=== PATIENT | female | born 1965 | race Caucasian/White ===

== ENCOUNTER 2018-10-14 22:50 | Inpatient (IN) | payer OTHER ==
[~2018-10-14] VITALS: Ht 162.6 cm; Wt 86.2 kg
[2018-10-14] MEDS ORDERED: JANUMET XR 50-1 EAC1 (23:17)
[2018-10-14] MEDS ORDERED: TOPROL XL100 MG (23:17)
[2018-10-14] MEDS ORDERED: SYNTHROID137 MCG (23:17)
[2018-10-14] MEDS ORDERED: HYDROCHLOROTHIA25 MG (23:18)
[2018-10-14] MEDS ORDERED: GLIMEPIRIDE4 MG (23:18)
[2018-10-20] MEDS ORDERED: PREDNISONE10 MG PO (08:36)
[2018-10-20] MEDS ORDERED: LEVAQUIN500 MG PO (08:36)
[2018-10-20] MEDS ORDERED: ALBUTEROL0.63 MG/3 IH (08:37)
== END 2018-10-20 11:48 | disposition home or self-care (01) | DRG 203 ==
LOC: ER 22:50 → MEDJ 10-15 08:19
PROVIDERS: ADMIT Internal Medicine
PROC: 4A033R1 Measurement of Arterial Saturation, Peripheral, Percutaneous Approach (ICD-10-PCS; principal; 2018-10-15)
PROC: 3E0F7GC Introduction of Other Therapeutic Substance into Respiratory Tract, Via Natural or Artificial Opening (ICD-10-PCS; 2018-10-15)
PROC: BB24ZZZ Computerized Tomography (CT Scan) of Bilateral Lungs (ICD-10-PCS; 2018-10-15)
PROC: B246ZZZ Ultrasonography of Right and Left Heart (ICD-10-PCS; 2018-10-16)
DX: J20.9 Acute bronchitis, unspecified (principal); R09.02 Hypoxemia; E11.9 Type 2 diabetes mellitus without complications; I10 Essential (primary) hypertension; J11.1 Influenza due to unidentified influenza virus with other respiratory manifestations

== ENCOUNTER 2022-08-06 18:36 | Emergency (ER) | payer OTHER ==
[~2022-08-06] VITALS: Ht 162.6 cm; Wt 95.3 kg
[~2022-08-06 18:36] MED LIST: ALBUTEROL0.63 MG/3 IH; GLIMEPIRIDE4 MG; HYDROCHLOROTHIA25 MG; JANUMET XR 50-1 EAC1; LEVAQUIN500 MG PO; PREDNISONE10 MG PO; SYNTHROID137 MCG; TOPROL XL100 MG
== END 2022-08-07 03:28 | disposition home or self-care (01) ==
LOC: ER 18:36
DX: U07.1 COVID-19 (principal)

== ENCOUNTER 2023-06-27 15:50 | Emergency (ER) | payer OTHER ==
[~2023-06-27] VITALS: Ht 162.6 cm; Wt 81.6 kg
[2023-06-27] MEDS ORDERED: COZAAR25 MG PO (16:17)
== END 2023-06-27 17:43 | disposition home or self-care (01) ==
LOC: ER 15:50
DX: T78.3XXA Angioneurotic edema, initial encounter (principal); X58.XXXA Exposure to other specified factors, initial encounter; Y92.89 Other specified places as the place of occurrence of the external cause

== ENCOUNTER 2023-07-01 09:16 | Emergency (ER) | payer OTHER ==
[~2023-07-01] VITALS: Ht 162.6 cm; Wt 98.9 kg
[~2023-07-01 09:16] MED LIST changes: +COZAAR25 MG PO
[2023-07-01 11:17] LABS: HEMATOCRIT 41.8 % (36.0-45.00); HEMOGLOBIN 13.8 g/dL (12.0-15.00); MEAN CELL VOLUME 86.4 fL (80.00-100.00); MEAN CORPUSCULAR HEMOGLOBIN 28.4 pg (27.00-32.0); MEAN CORPUSCULAR HGB CONC 32.9 g/dl (32.0-36.0); PLATELET COUNT 267 K/uL (150-450); RED BLOOD COUNT 4.84 M/uL (4.00-6.00); RED CELL DISTRIBUTION WIDTH 15.1 % (11.5-14.5)
[2023-07-01 11:18] LABS: PH,URINE 6.5 (5.0-8.0); URINE APPEARANCE Clear; URINE BILIRRUBIN Negative (NEGATIVE); URINE BLOOD Negative; URINE COLOR Yellow; URINE GLUCOSE Negative (NEGATIVE); URINE LEUKOCYTE Negative; URINE NITRATE Negative; URINE PROTEIN Negative (NEGATIVE); URINE UROBILINOGEN 0.2 E.U./dl
[2023-07-01 11:19] LABS: URINE BACTERIA 855.1 uL (0.0-1933); URINE EPITHELIAL CELLS 12.6 uL (0.0-38.8); URINE RBC 2.5 uL (0.0-20.8); URINE WBC 7.2 uL (0.0-23.2)
[2023-07-01 12:30] LABS: ALT/SGPT 23 U/L (12-78); ANION GAP 8 (10.0-20.0); AST/SGOT 12 U/L (15-37); BILIRUBIN,CONJUGATED < 0.10 mg/dL (0.0-0.2); BLOOD UREA NITROGEN 16 mg/dL (7-18); BUN CREA RATIO 19 (7.0-25.0); CALCIUM 9.9 mg/dL (8.5-10.1); CARBON DIOXIDE 32 mEq/L (21-32); CHLORIDE 103 mmol/L (98-107); CREATININE SERUM 0.83 mg/dL (0.55-1.02); GFR 70.61; GLUCOSE FASTING 122 mg/dL (65-100); LIPASE 38 U/L (13-75); OSMOLALITY SERUM 280 MOSM/KG (275-295); POTASSIUM 4.06 mEq/L (3.5-5.1); SODIUM 139 mmol/L (136-145)
[2023-07-01] MEDS ORDERED: ZOFRAN8 MG PO (15:29)
[2023-07-01] MEDS ORDERED: CARAFATE1 GM/10 ML PO (15:29)
[2023-07-01] MEDS ORDERED: PEPCID AC20 MG PO (15:29)
== END 2023-07-01 15:54 | disposition home or self-care (01) ==
LOC: ER 09:16
PROVIDERS: General Practice
DX: R10.84 Generalized abdominal pain (principal)

== ENCOUNTER 2024-06-26 09:13 | Outpatient (CLI) | payer OTHER ==
[~2024-06-26 09:13] MED LIST changes: +CARAFATE1 GM/10 ML PO; +PEPCID AC20 MG PO; +ZOFRAN8 MG PO
[2024-06-26 10:29] LABS: HEMATOCRIT 41.7 % (36.0-45.00); HEMOGLOBIN 13.9 g/dL (12.0-15.00); MEAN CELL VOLUME 89.9 fL (80.00-100.00); MEAN CORPUSCULAR HEMOGLOBIN 29.8 pg (27.00-32.0); MEAN CORPUSCULAR HGB CONC 33.2 g/dl (32.0-36.0); PLATELET COUNT 250 K/uL (150-450); RED BLOOD COUNT 4.65 M/uL (4.00-6.00); RED CELL DISTRIBUTION WIDTH 14.6 % (11.5-14.5)
[2024-06-26 10:40] LABS: URINE APPEARANCE Clear; URINE BILIRRUBIN Negative (NEGATIVE); URINE BLOOD Negative; URINE COLOR Yellow; URINE GLUCOSE Negative (NEGATIVE); URINE KETONE Negative (NEGATIVE); URINE LEUKOCYTE Trace; URINE NITRATE Negative; URINE PROTEIN Negative (NEGATIVE); URINE UROBILINOGEN 0.2 E.U./dl
[2024-06-26 10:45] LABS: ERYTHROCYTE SEDIMENTATION RATE 46 mm/hr
[2024-06-26 10:46] LABS: URINE BACTERIA 1883.4 uL (0.0-1933); URINE EPITHELIAL CELLS 40.7 uL (0.0-38.8); URINE RBC 5.3 uL (0.0-20.8); URINE WBC 28.4 uL (0.0-23.2)
[2024-06-26 11:40] LABS: MANUAL PLATELET COUNT 446
[2024-06-26 11:41] LABS: PLATELET ESTIMATE NORMAL (NORMAL)
[2024-06-26 11:47] LABS: FOLIC ACID > 20.00 ng/ml (4.78-20); VITAMIN D3 25 HYDROXY 42.44 ng/ml (30-120)
[2024-06-26 11:54] LABS: ALBUMIN 3.9 gm/dL (3.4-5.0); BILIRUBIN TOTAL 0.5 mg/dL (0.3-1.2); CALCIUM 9.6 mg/dL (8.5-10.1); CREATININE SERUM 0.92 mg/dL (0.55-1.02); FREE TRIODOTIRONINE 2.22 pg/ml (2.18-3.98); GFR 62.48; GLOBULINA 4.6 G/DL (2.4-3.5); POTASSIUM 4.64 mEq/L (3.5-5.1); T4 TOTAL 10.7 UG/DL (4.8-13.9); TOTAL PROTEIN 8.5 gm/dL (6.4-8.2); TSH 0.953 uIU/mL (0.358-3.74)
[2024-06-26 11:59] LABS: C-REACTIVE PROTEIN 0.95 MG/DL (0.00-0.29)
== END 2024-06-26 09:14 | disposition home or self-care (01) ==
LOC: LAB 09:13
PROVIDERS: ATTEND Internal Medicine Hematology & Oncology
DX: D72.828 Other elevated white blood cell count (principal); G47.33 Obstructive sleep apnea (adult) (pediatric); E11.9 Type 2 diabetes mellitus without complications; E78.2 Mixed hyperlipidemia; I10 Essential (primary) hypertension; E03.8 Other specified hypothyroidism; R79.9 Abnormal finding of blood chemistry, unspecified; D50.8 Other iron deficiency anemias; R74.02 Elevation of levels of lactic acid dehydrogenase [LDH]; K76.89 Other specified diseases of liver; D63.8 Anemia in other chronic diseases classified elsewhere; I11.9 Hypertensive heart disease without heart failure; Z12.11 Encounter for screening for malignant neoplasm of colon; E03.9 Hypothyroidism, unspecified; M79.7 Fibromyalgia; E55.9 Vitamin D deficiency, unspecified; E78.9 Disorder of lipoprotein metabolism, unspecified

== ENCOUNTER → 2024-07-06 10:45 | Outpatient (CLI) | payer OTHER ==
[2024-07-06 13:28] LABS: ob NEGATIVE (NEGATIVE)
== END | disposition home or self-care (01) ==
LOC: LAB 10:45
PROVIDERS: ATTEND Internal Medicine
DX: I11.9 Hypertensive heart disease without heart failure (principal); Z12.11 Encounter for screening for malignant neoplasm of colon; E03.9 Hypothyroidism, unspecified; E11.9 Type 2 diabetes mellitus without complications; M79.7 Fibromyalgia; E55.9 Vitamin D deficiency, unspecified; E78.9 Disorder of lipoprotein metabolism, unspecified

== ENCOUNTER → 2024-09-23 06:25 | Outpatient (CLI) | payer OTHER ==
[2024-09-23 07:20] LABS: HEMATOCRIT 41.2 % (36.0-45.00); HEMOGLOBIN 14.1 g/dL (12.0-15.00); MEAN CELL VOLUME 88.3 fL (80.00-100.00); MEAN CORPUSCULAR HEMOGLOBIN 30.2 pg (27.00-32.0); MEAN CORPUSCULAR HGB CONC 34.2 g/dl (32.0-36.0); PLATELET COUNT 209 K/uL (150-450); RED BLOOD COUNT 4.66 M/uL (4.00-6.00); RED CELL DISTRIBUTION WIDTH 14.4 % (11.5-14.5)
[2024-09-23 07:57] LABS: URINE BACTERIA 1226.1 uL (0.0-1933); URINE EPITHELIAL CELLS 24.2 uL (0.0-38.8); URINE RBC 4.5 uL (0.0-20.8); URINE WBC 19.6 uL (0.0-23.2)
[2024-09-23 08:10] LABS: URINE APPEARANCE Clear; URINE BILIRRUBIN Negative (NEGATIVE); URINE BLOOD Negative; URINE COLOR Yellow; URINE GLUCOSE Negative (NEGATIVE); URINE KETONE Negative (NEGATIVE); URINE LEUKOCYTE Trace; URINE NITRATE Negative; URINE PROTEIN Negative (NEGATIVE); URINE UROBILINOGEN 0.2 E.U./dl
[2024-09-23 08:13] LABS: URINE CAST 0.73 uL (0.0-1.40)
[2024-09-23 08:29] LABS: ERYTHROCYTE SEDIMENTATION RATE 47 mm/hr
[2024-09-23 08:30] LABS: ALBUMIN 3.5 gm/dL (3.4-5.0); BILIRUBIN TOTAL 0.47 mg/dL (0.3-1.2); CALCIUM 9.2 mg/dL (8.5-10.1); CHOL HDL RATIO 4.1 (0-5.0); CREATININE SERUM 0.79 mg/dL (0.55-1.02); FREE TRIODOTIRONINE 2.29 pg/ml (2.18-3.98); GFR 74.49; GLOBULINA 4.4 G/DL (2.4-3.5); POTASSIUM 3.73 mEq/L (3.5-5.1); T4 TOTAL 9.74 UG/DL (4.8-13.9); TOTAL PROTEIN 7.9 gm/dL (6.4-8.2); TSH 0.912 uIU/mL (0.358-3.74)
[2024-09-23 08:37] LABS: C-REACTIVE PROTEIN 0.78 MG/DL (0.00-0.29)
[2024-09-23 09:38] LABS: MANUAL PLATELET COUNT 410; PLATELET ESTIMATE NORMAL (NORMAL)
[2024-09-23 12:17] LABS: FOLIC ACID 15.72 ng/ml (4.78-20); VITAMIN D3 25 HYDROXY 39.02 ng/ml (30-120)
== END | disposition home or self-care (01) ==
LOC: LAB 06:25
PROVIDERS: ATTEND Internal Medicine Hematology & Oncology
DX: D72.828 Other elevated white blood cell count (principal); D51.0 Vitamin B12 deficiency anemia due to intrinsic factor deficiency; G47.33 Obstructive sleep apnea (adult) (pediatric); E11.9 Type 2 diabetes mellitus without complications; E78.2 Mixed hyperlipidemia; I10 Essential (primary) hypertension; E03.8 Other specified hypothyroidism; D50.8 Other iron deficiency anemias; R79.9 Abnormal finding of blood chemistry, unspecified; R74.02 Elevation of levels of lactic acid dehydrogenase [LDH]; K76.89 Other specified diseases of liver; D51.8 Other vitamin B12 deficiency anemias; I11.9 Hypertensive heart disease without heart failure; Z12.11 Encounter for screening for malignant neoplasm of colon; E03.9 Hypothyroidism, unspecified; M79.7 Fibromyalgia; E55.9 Vitamin D deficiency, unspecified

== ENCOUNTER 2024-09-28 14:25 | Outpatient (CLI) | payer OTHER ==
[2024-09-28 15:22] LABS: ob NEGATIVE (NEGATIVE)
== END 2024-09-28 14:26 | disposition home or self-care (01) ==
LOC: LAB 14:25
PROVIDERS: ATTEND Internal Medicine
DX: I11.9 Hypertensive heart disease without heart failure (principal); Z12.11 Encounter for screening for malignant neoplasm of colon; E03.9 Hypothyroidism, unspecified; E11.9 Type 2 diabetes mellitus without complications; M79.7 Fibromyalgia; E55.9 Vitamin D deficiency, unspecified; E78.9 Disorder of lipoprotein metabolism, unspecified

== ENCOUNTER 2025-03-11 06:43 | Outpatient (CLI) | payer OTHER ==
[2025-03-11 08:13] LABS: BASO % 0.3 % (0.1-1.2); EOS # 0.25 (0.04-0.54); EOS % 2.6 % (0.7-7.0); LYMPH # 3.33 (1.18-3.74); LYMPH % 35.1 % (19.3-53.1); MEAN PLATELET VOLUME 11.80 fl (9.4-12.4); MONO # 0.75 (0.24-0.82); MONO % 7.9 % (4.7-12.5); NEUT # 5.09 (1.56-6.13); NEUT % 53.8 % (34.0-71.1); RED CELL DISTRIBUTION WIDTH 14.0 % (11.6-14.4)
[2025-03-11 08:23] LABS: URINE APPEARANCE Clear; URINE BILIRRUBIN Negative (NEGATIVE); URINE BLOOD Negative; URINE COLOR Yellow; URINE GLUCOSE Negative (NEGATIVE); URINE KETONE Negative (NEGATIVE); URINE LEUKOCYTE Trace; URINE NITRATE Negative; URINE PROTEIN Negative (NEGATIVE); URINE UROBILINOGEN 0.2 E.U./dl
[2025-03-11 08:28] LABS: URINE BACTERIA 1697.6 uL (0.0-1933); URINE EPITHELIAL CELLS 21.2 uL (0.0-38.8); URINE RBC 3.9 uL (0.0-20.8); URINE WBC 12.3 uL (0.0-23.2)
[2025-03-11 08:32] LABS: ERYTHROCYTE SEDIMENTATION RATE 16 mm/hr (0-30)
[2025-03-11 08:43] LABS: URINE CAST 0.00 uL (0.0-1.40)
[2025-03-11 09:27] LABS: ALT/SGPT 19.0 U/L (12-78); AST/SGOT 8.0 U/L (15-37); BILIRUBIN TOTAL 0.37 mg/dL (0.3-1.2); BUN CREA RATIO 13.0 (7.0-25.0); CHOL HDL RATIO 4.6 (0-5.0); CREATININE SERUM 0.84 mg/dL (0.55-1.02); FE 50.0 ug/dl (50-170); FREE TRIODOTIRONINE 2.18 pg/ml (2.18-3.98); GFR 69.4; GLOBULINA 4.6 G/DL (2.4-3.5); GLUCOSE FASTING 110.0 mg/dL (65-100); HDL 43.0 mg/dl (40-60); LDH 131.0 U/L (84-246); OSMOLALITY SERUM 279.0 MOSM/KG (275-295); T4 TOTAL 9.93 UG/DL (4.8-13.9); TSH 1.42 uIU/mL (0.358-3.74)
[2025-03-11 09:31] LABS: LDL 104.0 mg/dl (0-130); VLDL 50.0 (0-39)
[2025-03-11 11:57] LABS: FOLIC ACID 16.86 ng/ml (4.78-20)
[2025-03-12 09:39] LABS: MANUAL PLATELET COUNT 327
== END 2025-03-11 06:47 | disposition home or self-care (01) ==
LOC: LAB 06:43
PROVIDERS: ATTEND Internal Medicine
DX: E78.9 Disorder of lipoprotein metabolism, unspecified (principal); E11.9 Type 2 diabetes mellitus without complications; E55.9 Vitamin D deficiency, unspecified; M79.7 Fibromyalgia; E03.9 Hypothyroidism, unspecified; Z12.11 Encounter for screening for malignant neoplasm of colon; I11.9 Hypertensive heart disease without heart failure; D50.8 Other iron deficiency anemias; I10 Essential (primary) hypertension; R74.02 Elevation of levels of lactic acid dehydrogenase [LDH]; K76.89 Other specified diseases of liver; D51.8 Other vitamin B12 deficiency anemias; C56.9 Malignant neoplasm of unspecified ovary; R97.8 Other abnormal tumor markers; R97.1 Elevated cancer antigen 125 [CA 125]; R97.0 Elevated carcinoembryonic antigen [CEA]; R79.9 Abnormal finding of blood chemistry, unspecified; D72.828 Other elevated white blood cell count; D51.0 Vitamin B12 deficiency anemia due to intrinsic factor deficiency; G47.33 Obstructive sleep apnea (adult) (pediatric); E78.2 Mixed hyperlipidemia; E03.8 Other specified hypothyroidism